=== PATIENT | female | born 1970 | race Caucasian/White ===

== ENCOUNTER 2017-06-04 16:35 | Emergency (ER) | payer SELFPAY ==
[~2017-06-04] VITALS: Ht 162.6 cm; Wt 85.0 kg
[2017-06-04] MEDS ORDERED: IBUP-1649 PO (16:43)
[2017-06-04] MEDS ORDERED: IBUP-2030 PO (16:43)
[2017-06-04] MEDS ORDERED: SODIUM CHLORIDE 0.9% 1,000 ML IV ONE (17:06)
[2017-06-04] MEDS ORDERED: METHYLPREDNISOLONE SOD SUCC 125 MG/2 ML VIAL IV ONE (17:15)
[2017-06-04 21:00] VITALS: BP 128/70
== END 2017-06-04 21:00 | disposition home or self-care (01) ==
LOC: ER 17:01
DX: T78.40XA Allergy, unspecified, initial encounter (principal); J45.909 Unspecified asthma, uncomplicated; X58.XXXA Exposure to other specified factors, initial encounter
CPT/HCPCS: 96361; 96374; 99285; J2930; J7030